=== PATIENT | male | born 1990 | race Caucasian/White ===

== ENCOUNTER 2018-07-02 02:21 | Emergency (ER) | payer OTHER ==
[~2018-07-02] VITALS: Ht 203.2 cm; Wt 99.8 kg
[~2018-07-02 02:21] MED LIST: AMOX50SU PO; CODACEE120 PO
== END 2018-07-02 05:13 | disposition home or self-care (01) ==
LOC: ER 02:21
DX: S93.402A Sprain of unspecified ligament of left ankle, initial encounter (principal); X50.9XXA Other and unspecified overexertion or strenuous movements or postures, initial encounter
CPT/HCPCS: 73610; 99283-25

== ENCOUNTER 2018-11-21 12:30 | Day surgery (SDC) | payer OTHER ==
[~2018-11-21] VITALS: Ht 203.2 cm; Wt 92.5 kg
[2018-11-21] MEDS ORDERED: Ibuprofen Ib200 MG PO (13:07)
--- NOTE | 2018-11-21 19:40 | NUR ---
11/21/181939 Domenica Tinoco PT DENIES PAIN, STATES HE IS NAUSEOUS. 4MG ZOFRAN IVP GIVEN PER ORDERS. AFTER REASSESSMENT, PT DENIES IMPROVEMENT. DR. [place], AND ORDERED 12.5MG PHENERGAN IVP AT 1930. PT STATES AT 1939 NAUSEA HAS RESOLVED. INTO CHAIR WITH [facility] AT 1939.
== END 2018-11-21 20:30 | disposition home or self-care (01) ==
LOC: ORSCSDS 12:30
PROVIDERS: Podiatrist Foot & Ankle Surgery
PROC: 0SBG4ZZ Excision of Left Ankle Joint, Percutaneous Endoscopic Approach (ICD-10-PCS; principal; 2018-11-21 14:00)
DX: M93.272 Osteochondritis dissecans, left ankle and joints of left foot (principal); M89.8X7 Other specified disorders of bone, ankle and foot; M65.9 Synovitis and tenosynovitis, unspecified
CPT/HCPCS: C1713; C1769; J0171; J0690; J1100; J1885; J2250; J2405; J2550; J2704; J3010; J7120